=== PATIENT | male | born 1940 | race Caucasian/White ===

== ENCOUNTER 2016-10-01 19:15 | Emergency (ER) | payer MEDICARE ==
[2016-10-01 19:59] LABS: BASO # 0.1 10_X3_uL (0.0-0.1); EOS # 0.3 10_X3_uL (0.0-0.5); GRAN # 4.2 10_X3_uL (1.8-5.4); GRAN % 59.5 % (34.0-67.9); HEMATOCRIT 40.4 % (40-51); HEMOGLOBIN 13.6 g/dL (13.7-17.5); LYMPH # 1.6 10_X3_uL (1.3-3.6); MEAN CORPUSCULAR HEMOGLOBIN 30.6 pg (27.0-33.0); MEAN CORPUSCULAR HGB CONC 33.7 g/dL (32.0-36.0); MEAN PLATELET VOLUME 8.4 fl (7.5-11.5); MONO # 0.9 10_X3_uL (0.3-0.8); PLATELET COUNT 341 x10_3/uL (163-337); RED BLOOD COUNT 4.44 x10_6/uL (4.6-6.1); RED CELL DISTRIBUTION WIDTH 12.7 % (11.6-14.4); WHITE BLOOD COUNT 7.1 x10_3/uL (4.2-9.1)
[2016-10-01 20:00] LABS: BASO % 0.8 % (0.2-1.2); EOS % 4.8 % (0.8-7.0); MONO % 11.9 % (5.3-12.2)
[2016-10-01 20:12] LABS: BLOOD UREA NITROGEN 10 mg/dL (7-18); CALCIUM 9.1 mg/dL (8.7-10.7); CARBON DIOXIDE 27 mmol/L (21-32); CREATININE 1.1 mg/dL (0.6-1.3); GLUCOSE,RANDOM 122 mg/dL (70-99); POTASSIUM 3.9 mmol/L (3.5-5.1); SODIUM 131 mmol/L (136-145)
== END 2016-10-01 22:23 | disposition home or self-care (01) ==
LOC: ER 19:15
PROVIDERS: General Practice
DX: G40.909 Epilepsy, unspecified, not intractable, without status epilepticus (principal); G31.9 Degenerative disease of nervous system, unspecified; I73.9 Peripheral vascular disease, unspecified; E11.9 Type 2 diabetes mellitus without complications; Z79.84 Long term (current) use of oral hypoglycemic drugs; Z79.899 Other long term (current) drug therapy
CPT/HCPCS: 36415; 70450; 80048; 85025; 93005; 99284; 99284-25